=== PATIENT | female | born 1985 | race Caucasian/White ===

== ENCOUNTER 2020-10-25 00:11 | Observation (INO) | payer BC ==
[2020-10-25 00:53] VITALS: BMI 32.5
[2020-10-25] MEDS ORDERED: Acetaminophen 500 MG TAB PO PRN (01:41)
[2020-10-25] MEDS ORDERED: hydrALAZINE 20 MG/ML VIAL SLOW IVP PRN (01:41)
[2020-10-25] MEDS ORDERED: Bicitra 30 ML UDCUP PO PRN (01:41)
[2020-10-25] MEDS ORDERED: Promethazine HCl 25 MG/ML VIAL IM PRN (01:41)
[2020-10-25] MEDS ORDERED: Famotidine/PF 20 mg/2ml Vial SLOW IVP PRN (01:41)
[2020-10-25] MEDS ORDERED: CEFAZOLIN 2 GM in Premix Bag 1 BAG IVPB SCH (01:41)
[2020-10-25] MEDS ORDERED: Ondansetron PF 4 MG/2 ML Vial IVP PRN (01:41)
[2020-10-25] MEDS ORDERED: Lactated Ringer's 1,000 ML IV SCH ×2 (01:41)
[2020-10-25] MEDS ORDERED: Butorphanol Tartrate 1 MG/ML VIAL SLOW IVP PRN (01:41)
[2020-10-25 02:13] LABS: Hemoglobin 11.2 g/dL (12.0-15.5); Mean Corpuscular HGB CONC 34.3 g/dL (32.0-36.0); Mean Corpuscular Hemoglobin 30.4 pg (27.0-33.0); Mean Corpuscular Volume 88.6 fl (81.6-98.3); Platelet Count 260 10x3/uL (150-450); RBC Distribution Width 13.6 % (11.5-14.5); Red Blood Cell (RBC) Count 3.69 10x6/uL (3.90-5.03); White Blood Cell (WBC) Count 14.2 10x3/uL (3.5-10.5)
[2020-10-25 02:53] LABS: Hep B Surf Ag Non-Reactive S/CO (NonReactive); Syphilis Antibody Nonreactive (Nonreactive); Syphilis Antibody Index 0.05 S/CO (<1.00 Non-Reactive)
[2020-10-25 03:11] LABS: HBSAg Index 0.12 S/CO (0-0.99)
[2020-10-25 03:49] LABS: Bilirubin Neg (Negative); Blood, Urine Negative (Negative); Clarity Slightly Cloudy (Clear); Glucose, Urine (Dipstick) Normal (Negative); Ketone, Urine 150 mg/dL (Negative); Leukocyte Negative (Negative); Nitrite Negative (Negative); Protein, Urine (Dipstick) 15 mg/dl (Neg-Trace); Urobilinogen Normal mg/dL (Less than 2)
[2020-10-25 03:54] LABS: Bacteria/HPF None Seen HPF (None Seen); Mucous/LPF 1+ LPF (<2+); Oval Fat Bodies/HPF Rare HPF (None Seen); RBC/HPF 0-3 HPF (0-3); Renal Epithelial 0-3 HPF (None Seen); Transitional Epithelial 0-3 HPF (None Seen); WBC/HPF 0-3 HPF (0-3)
[2020-10-25 03:59] LABS: Amphetamine Not Detected (NotDetected); Barbiturates Screen Not Detected (NotDetected); Benzodiazepine Screen Not Detected (NotDetected); Cocaine Metabolite Screen Not Detected (NotDetected); Methadone Not Detected (NotDetected); Methamphetamine Not Detected (NotDetected); Opiate Screen Not Detected (NotDetected); Oxycodone Screen Not Detected (NotDetected); Phencyclidine (PCP) Not Detected (NotDetected); THC/Cannabinoid Screen Not Detected (NotDetected); Tricyclic Screen Not Detected (NotDetected)
[2020-10-25] MEDS ORDERED: Morphine 4 MG/ML VIAL ONE (08:39)
[2020-10-25] MEDS ORDERED: Bicitra 30 ML UDCUP ONE (08:58)
== END 2020-10-25 18:40 | disposition home health service (06) ==
LOC: CSHLD/OP 00:11 → CSHLD 06:31 → INTOOBSV 06:31
PROVIDERS: ADMIT Obstetrics & Gynecology; ATTEND Obstetrics & Gynecology
DX: O99.891 Other specified diseases and conditions complicating pregnancy (principal); R10.31 Right lower quadrant pain; O36.8330 Maternal care for abnormalities of the fetal heart rate or rhythm, third trimester, not applicable or unspecified; O34.219 Maternal care for unspecified type scar from previous cesarean delivery; O09.523 Supervision of elderly multigravida, third trimester; Z3A.36 36 weeks gestation of pregnancy
CPT/HCPCS: 36415; 76815; 76856; 80306; 81001; 85027; 85460; 86780; 86850; 86870; 86900; 86901; 87340; 93976; 99283; 99285; J0595; J2270

== ENCOUNTER 2020-11-04 08:23 | Outpatient (CLI) | payer BC ==
[2020-11-04 18:28] LABS: SARS-CoV-2 PCR by NAA Not Detected (NotDetected)
== END 2020-11-04 08:24 | disposition home or self-care (01) ==
LOC: CSHLAB 08:23
PROVIDERS: ATTEND Obstetrics & Gynecology
DX: Z20.822 Contact with and (suspected) exposure to COVID-19 (principal)
CPT/HCPCS: 87635; U0003; U0005

== ENCOUNTER 2020-11-07 09:43 | Inpatient (IN) | payer BC ==
[2020-11-07] MEDS ORDERED: Promethazine HCl 25 MG/ML VIAL IM PRN ×3 (10:19→17:56)
[2020-11-07] MEDS ORDERED: Ondansetron PF 4 MG/2 ML Vial IVP PRN ×3 (10:19→17:56)
[2020-11-07] MEDS ORDERED: Bicitra 30 ML UDCUP PO PRN (10:19)
[2020-11-07] MEDS ORDERED: hydrALAZINE 20 MG/ML VIAL SLOW IVP PRN ×2 (10:19→17:56)
[2020-11-07] MEDS ORDERED: Famotidine/PF 20 mg/2ml Vial SLOW IVP PRN (10:19)
[2020-11-07] MEDS: Lactated Ringer's 1,000 ML IV SCH ×2 (10:29→12:09)
[2020-11-07] MEDS ORDERED: CEFAZOLIN 2 GM in Premix Bag 1 BAG IVPB SCH (10:30)
[2020-11-07 10:39] VITALS: BMI 32.5
[2020-11-07] MEDS ORDERED: ePHEDrine Sulfate 50 MG/10 ML VIAL ONE (10:44)
[2020-11-07] MEDS ORDERED: Ketorolac Tromethamine 15 MG/ML VIAL ONE (10:44)
[2020-11-07] MEDS ORDERED: Ondansetron PF 4 MG/2 ML Vial ONE (10:45)
[2020-11-07] MEDS ORDERED: Dexamethasone 4 mg/ml Vial ONE (10:45)
[2020-11-07] MEDS ORDERED: Oxytocin 10 UNITS/ML VIAL ONE ×2 (10:45→10:47)
[2020-11-07] MEDS ORDERED: Morphine PF 10 MG/10 ML VIAL ONE (10:45)
[2020-11-07] MEDS ORDERED: Phenylephrine 10 MG/ML VIAL ONE (10:45)
[2020-11-07 10:47] LABS: Hemoglobin 10.7 g/dL (12.0-15.5); Mean Corpuscular HGB CONC 33.8 g/dL (32.0-36.0); Mean Corpuscular Hemoglobin 29.9 pg (27.0-33.0); Mean Corpuscular Volume 88.5 fl (81.6-98.3); Mean Platelet Volume 10.9 fl (7.4-10.4); Platelet Count 265 10x3/uL (150-450); RBC Distribution Width 13.6 % (11.5-14.5); Red Blood Cell (RBC) Count 3.58 10x6/uL (3.90-5.03)
[2020-11-07 11:19] LABS: Hep B Surf Ag Non-Reactive S/CO (NonReactive); Syphilis Antibody Nonreactive (Nonreactive); Syphilis Antibody Index 0.05 S/CO (<1.00 Non-Reactive)
[2020-11-07 11:21] LABS: HBSAg Index 0.24 S/CO (0-0.99)
[2020-11-07] MEDS ORDERED: Ondansetron HCl/PF 4 MG/2 ML Vial IVP PRN (13:45)
[2020-11-07] MEDS ORDERED: Communication Order-Pharmacy FS SCH (13:45)
[2020-11-07] MEDS ORDERED: Naloxone HCl 0.4 mg/ml Vial IV PRN (13:45)
[2020-11-07] MEDS ORDERED: Ketorolac Tromethamine 30 MG/ML VIAL IVP PRN (13:45)
[2020-11-07] MEDS ORDERED: HYDROmorphone 2 MG/ML VIAL SLOW IVP PRN (13:45)
[2020-11-07] MEDS ORDERED: Ketorolac Tromethamine 30 MG/ML VIAL IVP SCH (13:45)
[2020-11-07] MEDS ORDERED: L&D-Morphine 4 MG/ML VIAL SLOW IVP PRN (13:45)
[2020-11-07] MEDS ORDERED: Promethazine HCl 25 MG SUPP PR PRN (13:45)
[2020-11-07] MEDS ORDERED: Eucerin (Mineral Oil/Petrolatum,White) 30 gm Jar TOP PRN (13:45)
[2020-11-07] MEDS ORDERED: Naloxone HCl 0.4 mg/ml Vial IVP PRN ×2 (13:45)
[2020-11-07] MEDS ORDERED: diphenhydrAMINE 50 MG/ML VIAL IVP PRN (13:45)
[2020-11-07] MEDS ORDERED: Meperidine HCl/PF 25 MG/ML VIAL SLOW IVP PRN (13:45)
[2020-11-07] MEDS ORDERED: Measles/Mumps/Rubella 10 MCG/0.5 ML VIAL SC ONE (17:56)
[2020-11-07] MEDS ORDERED: Misoprostol 200 MCG TAB PR PRN (17:56)
[2020-11-07] MEDS ORDERED: Adacel (T-DAP) 0.5 ML SYRINGE IM ONE (17:56)
[2020-11-07] MEDS ORDERED: Bisacodyl 10 MG SUPP PR PRN (17:56)
[2020-11-07] MEDS ORDERED: Varicella virus, LIVE 0.5 ML VIAL SC ONE (17:56)
[2020-11-07] MEDS ORDERED: Simethicone Chewable 80 MG TAB PO PRN (17:56)
[2020-11-07] MEDS ORDERED: NS / Oxytocin 40 units/1000ml 1,000 ML IV SCH (17:56)
[2020-11-07] MEDS ORDERED: Lanolin Ointment 7 GM TUBE TOP PRN (17:56)
[2020-11-07] MEDS ORDERED: diphenhydrAMINE 25 MG CAP PO PRN (17:56)
[2020-11-07] MEDS: Docusate Calcium (SURFAK) 240 MG CAP PO SCH (22:33)
[2020-11-08] MEDS ORDERED: Zolpidem Tartrate 5 MG TAB PO PRN (01:45)
[2020-11-08] MEDS ORDERED: HYDROcodone/Acetaminophen 5/325 mg Tablet PO PRN (01:45)
[2020-11-08 05:21] LABS: Hemoglobin 9.7 g/dL (12.0-15.5); Mean Corpuscular HGB CONC 34.2 g/dL (32.0-36.0); Mean Corpuscular Hemoglobin 30.3 pg (27.0-33.0); Mean Corpuscular Volume 88.8 fl (81.6-98.3); Mean Platelet Volume 10.4 fl (7.4-10.4); Platelet Count 258 10x3/uL (150-450); RBC Distribution Width 13.4 % (11.5-14.5); White Blood Cell (WBC) Count 12.4 10x3/uL (3.5-10.5)
[2020-11-08] MEDS: Docusate Calcium (SURFAK) 240 MG CAP PO SCH ×2 (08:47→21:30)
[2020-11-08] MEDS: HYDROcodone/Acetaminophen 5/325 mg Tablet PO PRN ×2 (08:47→16:13)
[2020-11-08] MEDS: Prenatal Vitamin 1 TAB PO SCH (08:47)
[2020-11-08] MEDS: Ibuprofen 800 MG TAB PO SCH ×2 (14:23→21:30)
[2020-11-09] MEDS: Ibuprofen 800 MG TAB PO SCH ×2 (05:00→13:49)
[2020-11-09] MEDS: HYDROcodone/Acetaminophen 5/325 mg Tablet PO PRN ×2 (05:00→12:00)
[2020-11-09] MEDS: Docusate Calcium (SURFAK) 240 MG CAP PO SCH (08:13)
[2020-11-09] MEDS: Prenatal Vitamin 1 TAB PO SCH (08:14)
[2020-11-09 08:51] VITALS: TEMP 97.7
[2020-11-09 12:13] VITALS: BP 120/71
== END 2020-11-09 16:50 | disposition home or self-care (01) | DRG 787 ==
LOC: CSHLD 09:43 → CSHPP 16:30
PROVIDERS: ADMIT Obstetrics & Gynecology; ATTEND Obstetrics & Gynecology
PROC: 10D00Z1 Extraction of Products of Conception, Low, Open Approach (ICD-10-PCS; principal; 2020-11-07)
PROC: 3E0234Z Introduction of Serum, Toxoid and Vaccine into Muscle, Percutaneous Approach (ICD-10-PCS; 2020-11-08)
DX: O34.211 Maternal care for low transverse scar from previous cesarean delivery (principal); N83.511 Torsion of right ovary and ovarian pedicle; Z37.0 Single live birth; Z3A.38 38 weeks gestation of pregnancy; O26.893 Other specified pregnancy related conditions, third trimester; Z20.822 Contact with and (suspected) exposure to COVID-19; Z67.21 Type B blood, Rh negative; O34.83 Maternal care for other abnormalities of pelvic organs, third trimester; Z23 Encounter for immunization
CPT/HCPCS: 51702; 85027; 85461; 86780; 86850; 86900; 86901; 87340; 87635; 90384; 90715; 96372; J0690; J1100; J1885; J2274; J2370; J2405; U0003; U0005